=== PATIENT | female | born 1960 | race American Indian/Alaskan Native ===

== ENCOUNTER 2021-05-06 23:16 | Observation (INO) | payer MEDICARE ==
--- NOTE | 2021-05-07 01:37 | Emergency Department Report ---
HPI - General Chief Complaint: Altered Mental Status Time Seen by Provider: 05/07/21 01:18 - HPI HPI: 61-year-old female with unknown past medical history brought in by EMS after she was found lying down in someone's backyard with altered mental status. Patient has a purse with her containing the medications metoprolol and gabapentin. According to EMS her vital signs were normal and fingerstick blood glucose was normal. The patient states that she has no memory of how she ended up in the hospital. She says the last thing she remembers she was walking and then now she knows that she is in [facility]. She however is not oriented to time or situation. She does not member falling or hitting her head. She is confused and therefore it is very difficult to obtain a consistent history from the patient. Review of systems is inconsistent and changes over the course of seconds. Further details the HPI are limited due to the patient's current clinical condition. ED Past Medical Hx - Past Medical History Previous Medical History?: Yes Additional medical history: Unknown - Surgical History Past Surgical History?: No - Medications Home Medications: Home Medications Medication Instructions Recorded Confirmed Last Taken Type Cyclobenzaprine HCl [Flexeril 5 MG 5 mg PO QDAY 05/07/21 05/07/21 05/06/21 History TAB] Gabapentin [Neurontin] 400 mg PO TID PRN 05/07/21 05/07/21 05/05/21 History Metoprolol Xl [Toprol Xl] 100 mg PO BID 05/07/21 05/07/21 05/06/21 History ED Review of Systems ROS: Stated complaint: ALTERED MENTAL STATUS Other details as noted in HPI Comment: Unobtainable due to pts medical conditions Physical Exam - Physical Exam Vital Signs: Vital Signs 05/07/21 00:22 Temperature 98.0 F Pulse Rate 52 L Respiratory 18 Rate Blood Pressure 123/95 [Left] O2 Sat by Pulse 98 Oximetry Physical Exam: GENERAL: Frail appearing and disheveled with grass in the patient's care. HEAD: Normocephalic. No obvious signs of trauma. ENT: Moist mucous membranes. EYES: Extraocular movements are intact. Pupils constricted bilaterally but round and reactive. NECK: Supple. Full ROM is intact. Trachea is midline. LUNGS: Nonlabored breathing. Equal chest rise bilaterally. Decreased breath signs bilaterally but no rales wheezes appreciated CARDIOVASCULAR: Bradycardic but with regular rhythm. No murmurs or rubs. VASCULAR: Cap refill < 2 seconds ABDOMEN: Abdomen is soft and nondistended. There is no significant tenderness, guarding or rebound. SKIN: Skin is warm and dry NEURO: Patient is awake but slightly somnolent. Oriented only to place she has involuntary jerking movements of her bilateral upper extremities. operations team leader II-XII grossly intact. No focal deficits. Normal motor and sensory exam throughout. MUSCULOSKELETAL: No obvious deformities. No significant tenderness. Normal ROM throughout. BACK/SPINE: No midline tenderness or step-offs of the C/T/L spine. No costovertebral angle tenderness. ED Course Vital Signs 05/07/21 00:22 Temperature 98.0 F Pulse Rate 52 L Respiratory 18 Rate Blood Pressure 123/95 [Left] O2 Sat by Pulse 98 Oximetry ED Medical Decision Making - Lab Data Result diagrams: 05/07/21 03:05 05/07/21 01:53 Lab Results 05/07/21 05/07/21 05/07/21 Range/Units 01:53 01:53 01:53 WBC (4.5-11.0) K/mm3 RBC (3.65-5.03) M/mm3 Hgb (10.1-14.3) gm/dl Hct (30.3-42.9) % MCV (79-97) fl MCH (28-32) pg MCHC (30-34) % RDW (13.2-15.2) % Plt Count (140-440) K/mm3 Lymph % (Auto) (13.4-35.0) % [place] % (Auto) (0.0-7.3) % Eos % (Auto) (0.0-4.3) % Baso % (Auto) (0.0-1.8) % Lymph # (Auto) (1.2-5.4) K/mm3 [place] # (Auto) (0.0-0.8) K/mm3 Eos # (Auto) (0.0-0.4) K/mm3 Baso # (Auto) (0.0-0.1) K/mm3 Seg Neutrophils % (40.0-70.0) % Seg Neutrophils # (1.8-7.7) K/mm3 PT 13.5 (12.2-14.9) Sec. INR 0.93 (0.87-1.13) Sodium 138 (137-145) mmol/L Potassium 3.4 L (3.6-5.0) mmol/L Chloride 100.7 (98-107) mmol/L Carbon Dioxide 19 L (22-30) mmol/L Anion Gap 22 mmol/L BUN 14 (7-17) mg/dL Creatinine 0.8 (0.6-1.2) mg/dL Estimated GFR > 60 ml/min BUN/Creatinine Ratio 18 % Glucose 58 L (65-100) mg/dL POC Glucose (70-105) mg/dL Calcium 9.0 (8.4-10.2) mg/dL Magnesium 2.10 (1.7-2.3) mg/dL Total Bilirubin 0.80 (0.1-1.2) mg/dL Direct Bilirubin 0.2 (0-0.2) mg/dL Indirect Bilirubin 0.6 mg/dL AST 30 (5-40) units/L ALT 51 (7-56) units/L Alkaline Phosphatase 115 (35-129) units/L Ammonia (25-60) umol/L Troponin T < 0.010 (0.00-0.029) ng/mL Total Protein 8.8 H (6.3-8.2) g/dL Albumin 4.2 (3.9-5) g/dL Albumin/Globulin Ratio 0.9 % Lipase 12 L (13-60) units/L TSH (0.270-4.200) mlU/mL Salicylates (2.8-20.0) mg/dL Acetaminophen (10.0-30.0) ug/mL Plasma/Serum Alcohol (0-0.07) % Blood Type Antibody Screen 05/07/21 05/07/21 05/07/21 Range/Units 01:53 01:53 01:53 WBC (4.5-11.0) K/mm3 RBC (3.65-5.03) M/mm3 Hgb (10.1-14.3) gm/dl Hct (30.3-42.9) % MCV (79-97) fl MCH (28-32) pg MCHC (30-34) % RDW (13.2-15.2) % Plt Count (140-440) K/mm3 Lymph % (Auto) (13.4-35.0) % [place] % (Auto) (0.0-7.3) % Eos % (Auto) (0.0-4.3) % Baso % (Auto) (0.0-1.8) % Lymph # (Auto) (1.2-5.4) K/mm3 [place] # (Auto) (0.0-0.8) K/mm3 Eos # (Auto) (0.0-0.4) K/mm3 Baso # (Auto) (0.0-0.1) K/mm3 Seg Neutrophils % (40.0-70.0) % Seg Neutrophils # (1.8-7.7) K/mm3 PT (12.2-14.9) Sec. INR (0.87-1.13) Sodium (137-145) mmol/L Potassium (3.6-5.0) mmol/L Chloride (98-107) mmol/L Carbon Dioxide (22-30) mmol/L Anion Gap mmol/L BUN (7-17) mg/dL Creatinine (0.6-1.2) mg/dL Estimated GFR ml/min BUN/Creatinine Ratio % Glucose (65-100) mg/dL POC Glucose (70-105) mg/dL Calcium (8.4-10.2) mg/dL Magnesium (1.7-2.3) mg/dL Total Bilirubin (0.1-1.2) mg/dL Direct Bilirubin (0-0.2) mg/dL Indirect Bilirubin mg/dL AST (5-40) units/L ALT (7-56) units/L Alkaline Phosphatase (35-129) units/L Ammonia 35.0 (25-60) umol/L Troponin T (0.00-0.029) ng/mL Total Protein (6.3-8.2) g/dL Albumin (3.9-5) g/dL Albumin/Globulin Ratio % Lipase (13-60) units/L TSH 0.828 (0.270-4.200) mlU/mL Salicylates < 0.3 L (2.8-20.0) mg/dL Acetaminophen (10.0-30.0) ug/mL Plasma/Serum Alcohol (0-0.07) % Blood Type Antibody Screen 05/07/21 05/07/2121 Range/Units 01:53 01:53 01:53 WBC (4.5-11.0) K/mm3 RBC (3.65-5.03) M/mm3 Hgb (10.1-14.3) gm/dl Hct (30.3-42.9) % MCV (79-97) fl MCH (28-32) pg MCHC (30-34) % RDW (13.2-15.2) % Plt Count (140-440) K/mm3 Lymph % (Auto) (13.4-35.0) % [place] % (Auto) (0.0-7.3) % Eos % (Auto) (0.0-4.3) % Baso % (Auto) (0.0-1.8) % Lymph # (Auto) (1.2-5.4) K/mm3 [place] # (Auto) (0.0-0.8) K/mm3 Eos # (Auto) (0.0-0.4) K/mm3 Baso # (Auto) (0.0-0.1) K/mm3 Seg Neutrophils % (40.0-70.0) % Seg Neutrophils # (1.8-7.7) K/mm3 PT (12.2-14.9) Sec. INR (0.87-1.13) Sodium (137-145) mmol/L Potassium (3.6-5.0) mmol/L Chloride (98-107) mmol/L Carbon Dioxide (22-30) mmol/L Anion Gap mmol/L BUN (7-17) mg/dL Creatinine (0.6-1.2) mg/dL Estimated GFR ml/min BUN/Creatinine Ratio % Glucose (65-100) mg/dL POC Glucose (70-105) mg/dL Calcium (8.4-10.2) mg/dL Magnesium (1.7-2.3) mg/dL Total Bilirubin (0.1-1.2) mg/dL Direct Bilirubin (0-0.2) mg/dL Indirect Bilirubin mg/dL AST (5-40) units/L ALT (7-56) units/L Alkaline Phosphatase (35-129) units/L Ammonia (25-60) umol/L Troponin T (0.00-0.029) ng/mL Total Protein (6.3-8.2) g/dL Albumin (3.9-5) g/dL Albumin/Globulin Ratio % Lipase (13-60) units/L TSH (0.270-4.200) mlU/mL Salicylates (2.8-20.0) mg/dL Acetaminophen 5.0 L (10.0-30.0) ug/mL Plasma/Serum Alcohol < 0.01 (0-0.07) % Blood Type O POSITIVE Antibody Screen Negative 05/07/21 05/07/21 05/07/21 Range/Units 03:05 03:58 06:04 WBC 8.6 (4.5-11.0) K/mm3 RBC 4.99 (3.65-5.03) M/mm3 Hgb 14.8 H (10.1-14.3) gm/dl Hct 46.6 H (30.3-42.9) % MCV 93 (79-97) fl MCH 30 (28-32) pg MCHC 32 (30-34) % RDW 13.2 (13.2-15.2) % Plt Count 233 (140-440) K/mm3 Lymph % (Auto) 30.5 (13.4-35.0) % [place] % (Auto) 5.4 (0.0-7.3) % Eos % (Auto) 0.7 (0.0-4.3) % Baso % (Auto) 0.8 (0.0-1.8) % Lymph # (Auto) 2.6 (1.2-5.4) K/mm3 [place] # (Auto) 0.5 (0.0-0.8) K/mm3 Eos # (Auto) 0.1 (0.0-0.4) K/mm3 Baso # (Auto) 0.1 (0.0-0.1) K/mm3 Seg Neutrophils % 62.6 (40.0-70.0) % Seg Neutrophils # 5.4 (1.8-7.7) K/mm3 PT (12.2-14.9) Sec. INR (0.87-1.13) Sodium (137-145) mmol/L Potassium (3.6-5.0) mmol/L Chloride (98-107) mmol/L Carbon Dioxide (22-30) mmol/L Anion Gap mmol/L BUN (7-17) mg/dL Creatinine (0.6-1.2) mg/dL Estimated GFR ml/min BUN/Creatinine Ratio % Glucose (65-100) mg/dL POC Glucose 106 H (70-105) mg/dL Calcium (8.4-10.2) mg/dL Magnesium (1.7-2.3) mg/dL Total Bilirubin (0.1-1.2) mg/dL Direct Bilirubin (0-0.2) mg/dL Indirect Bilirubin mg/dL AST (5-40) units/L ALT (7-56) units/L Alkaline Phosphatase (35-129) units/L Ammonia (25-60) umol/L Troponin T < 0.010 (0.00-0.029) ng/mL Total Protein (6.3-8.2) g/dL Albumin (3.9-5) g/dL Albumin/Globulin Ratio % Lipase (13-60) units/L TSH (0.270-4.200) mlU/mL Salicylates (2.8-20.0) mg/dL Acetaminophen (10.0-30.0) ug/mL Plasma/Serum Alcohol (0-0.07) % Blood Type Antibody Screen - EKG Data -: EKG Interpreted by Ar - EKG Data 05/07/21 18:30 Sinus bradycardia with heart rate of 45. Normal axis. Normal intervals. Occasional PVCs. No significant ST segment or T wave abnormalities. - Medical Decision Making 61-year-old female with unknown past medical history brought in after she was found lying in another person's backyard with altered mental status. The patient does not remember how she ended up at our hospital but does not know that she is at [facility]. She states that the last thing she remembers she was walking down the street and then she woke up in our emergency department. She is not oriented to time or situation. She is afebrile and with normal vital signs with the exception of bradycardia in the low 50s but with normal blood pressure. On physical exam she appears very disheveled with grass in her hair. However there are no obvious signs of trauma. She is noted to have involuntary jerking movements of her bilateral upper extremities. Otherwise she has a nonfocal neurologic exam. Lung auscult ation reveals decreased breath sounds but without any crackles or wheezes. We will perform broad work-up with full set of labs, chest x-ray, EKG, and CT of the head. We will continue to monitor her heart rate very closely. Chest x-ray reveals no acute abnormalities. EKG reveals only sinus bradycardia in the 40s. Labs reveal no significant leukocytosis or anemia. She has mild hypokalemia with potassium of 3.4, which we will replete. Kidney function is within normal limits. Initial troponin is negative. However, patient is noted to have glucose of 58. Patient was asking for food at the time that labs resulted and patient was given food with appropriate increase in her blood glucose. In addition her heart rate increased slightly to the 60s after eating. UDS is positive for cocaine. Urinalysis reveals findings consistent with urinary tract infection. I have ordered blood cultures and [address] of the head reveals no acute abnormalities. At 5:44 AM I spoke with Dr. Conteh of cardiology regarding the patient's case. He agrees with observation at this time and says he will see the patient in place further inpatient recommendations. Given the patient's altered mental status, unknown baseline, unknown past medical history, and her hypoglycemia, bradycardia, and urinary tract infection, she will require admission to the hospital for further work-up and management. Just before 6 AM I spoke with Dr. Elaine, the on-call hospitalist regarding the case. He accepts patient for admission and will assume care. Critical Care Time: Yes Critical care time in (mins) excluding proc time.: 40 Critical care attestation.: If time is entered above; I have spent that time in minutes in the direct care of this critically ill patient, excluding procedure time. Critical care time was spent in the evaluation/assessment, work-up, and management of altered mental status with bradycardia and hypoglycemia requiring close glucose monitoring and administration, electrolyte repletion, cardiology consultation and discussion, IV antibiotics, as well as multiple reevaluations and reassessments. ED Disposition Clinical Impression: Altered mental state, Acute metabolic encephalopathy, UTI (urinary tract infection), Hypoglycemia, Bradycardia, Involuntary movements Disposition: ADMITTED INPATIENT Is pt being admited?: Yes Condition: Undetermined
--- NOTE | 2021-05-07 02:02 | XRay Report ---
CHEST 1 VIEW 05/07/2021 12:52 AM INDICATION / CLINICAL INFORMATION: AMS. COMPARISON: None available. FINDINGS: SUPPORT DEVICES: None. HEART / MEDIASTINUM: The heart size and pulmonary vasculature are normal. There is mild aortic tortuo sity without aneurysm. LUNGS / PLEURA: No significant pulmonary or pleural abnormality. No pneumothorax. ADDITIONAL FINDINGS: No significant additional findings. IMPRESSION: No acute findings. Signer Name: Mukesh Steinberg MD Signed: 05/07/2021 1:58 AM Workstation Name: [id number]
[2021-05-07 02:29] LABS: INR 0.93 (0.87-1.13)
[2021-05-07 02:42] LABS: Alanine Aminotransferase 51 units/L (7-56); Albumin 4.2 g/dL (3.9-5); BUN/Creatinine Ratio 18; Bilirubin,Direct 0.2 mg/dL (0-0.2); Blood Urea Nitrogen 14 mg/dL (7-17); Hemolysis Index 14
[2021-05-07] MEDS ORDERED: POTASSIUM CHLORIDE ER 20 MEQ TAB PO ONE (02:47)
[2021-05-07 03:00] LABS: Bacteria,Urine 1+ /HPF (Negative); Bilirubin,Urine NEG (Negative); Blood,Urine SM (Negative); Color,Urine Yellow (Yellow); Mucus,Urine FEW /HPF; Protein,Urine <15 mg/dL mg/dL (Negative)
[2021-05-07 03:07] LABS: Amphetamine Screen,Urine PRESUMPTIVE NEGATIVE; Benzodiazepines Screen,Urine PRESUMPTIVE NEGATIVE; Cannabinoid Screen,Urine PRESUMPTIVE NEGATIVE; Cocaine Screen,Urine PRESUMPTIVE POSITIVE; Methadone Screen,Urine PRESUMPTIVE NEGATIVE; Opiate Screen,Urine PRESUMPTIVE NEGATIVE
[2021-05-07 03:21] LABS: Basophils # (Auto) 0.1 K/mm3 (0.0-0.1); Basophils % (Auto) 0.8 % (0.0-1.8); Eosinophils # (Auto) 0.1 K/mm3 (0.0-0.4); Eosinophils % (Auto) 0.7 % (0.0-4.3); Hematocrit 46.6 % (30.3-42.9); Hemoglobin 14.8 gm/dl (10.1-14.3); Lymphocytes # (Auto) 2.6 K/mm3 (1.2-5.4); Lymphocytes % (Auto) 30.5 % (13.4-35.0); Mean Corpuscular HGB Conc 32 % (30-34); Mean Corpuscular Volume 93 fl (79-97); Monocytes # (Auto) 0.5 K/mm3 (0.0-0.8); Monocytes % (Auto) 5.4 % (0.0-7.3); Platelet Count 233 K/mm3 (140-440); Red Blood Count 4.99 M/mm3 (3.65-5.03); Red Cell Distribution Width 13.2 % (13.2-15.2)
[2021-05-07] MEDS ORDERED: cefTRIAXone/NS 1 GM/50 ML 1 GM/50 ML BAG IV ONE (04:41)
[2021-05-07] MEDS ORDERED: SODIUM CHLORIDE 0.9% 500 ML 500 ML IV ONE (04:42)
--- NOTE | 2021-05-07 04:57 | Cat Scan Report ---
CT HEAD WITHOUT CONTRAST INDICATION / CLINICAL INFORMATION: Patient was found down. Altered mental status. TECHNIQUE: All CT scans at this location are performed using CT dose reduction for ALARA by means of automated exposure control. COMPARISON: None available. FINDINGS: HEMORRHAGE: None. EXTRA-AXIAL SPACES: Mildly prominent likely related to cortical atrophy. VENTRICULAR SYSTEM: Mildly enlarged likely related to central atrophy. CEREBRAL PARENCHYMA: There are extensive small vessel ischemic changes in the white matter and gangli ocapsular regions bilaterally. There is mild bilateral basal ganglia calcification. No acute territor ial infarct. MIDLINE SHIFT / HERNIATION: None. CEREBELLUM / BRAINSTEM: No significant abnormality. ORBITS: Normal as visualized. SOFT TISSUES: No significant abnormality. SKULL: No significant abnormality. PARANASAL SINUSES / MASTOID AIR CELLS: Normal as visualized. ADDITIONAL FINDINGS: None. IMPRESSION: No acute intracranial abnormality. Signer Name: Mukesh Steinberg MD Signed: 05/07/2021 4:52 AM Workstation Name: [id number]
[2021-05-07] MEDS ORDERED: ONDANSETRON 4 MG/2 ML INJ IV PRN (06:12)
[2021-05-07] MEDS ORDERED: MORPHINE 2 MG/1 ML INJ IV PRN (06:12)
[2021-05-07] MEDS ORDERED: ALBUTEROL 2.5 MG/3 ML NEBU IH PRN (06:12)
[2021-05-07] MEDS ORDERED: HYDROmorphone 1 MG/1 ML INJ IV PRN (06:12)
[2021-05-07] MEDS ORDERED: ACETAMINOPHEN 325 MG TAB PO PRN (06:12)
--- NOTE | 2021-05-07 06:21 | History and Physical Report ---
History of Present Illness Date of examination: 05/07/21 Date of admission: 05/07/21 Chief complaint: Altered mental status History of present illness: 61 years old female with past medical history of hypertension was brought to the emergency room because of altered mental status. Patient was found by EMS somebody's backyard. Patient was covered with dirt. Patient was lethargic. We do not get a clear history. Subsequently patient was brought to the emergency room . In the emergency room patient pulse rate was 52 and blood glucose 58 ,subsequently patient was given blood glucose after that patient is little bit more awake alert. Initial CT scan shows no acute intracranial abnormality. But patient is found to have a UTI and patient urine drug is skin is positive for cocaine Patient is a poor historian and lethargic. Most of the history is obtained from the chart and talking to the ER physician Past History Past Medical History: hypertension Medications and Allergies Allergies Allergy/AdvReac Type Severity Reaction Status Date / Time No Known Allergies Allergy Unverified 05/06/21 23:24 Review of Systems All systems: negative Constitutional: lethargy Neurological: change in mentation Exam - Constitutional Vitals: Temp Pulse Resp BP Pulse Ox 98.0 F 60 12 136/68 98 05/07/21 00:22 05/07/21 05:00 05/07/21 05:00 05/07/21 05:00 05/07/21 05:00 General appearance: Present: mild distress, well-nourished - EENT Eyes: Present: PERRL ENT: hearing intact, clear oral mucosa - Neck Neck: Present: supple, normal ROM - Respiratory Respiratory effort: normal Respiratory: bilateral: CTA - Cardiovascular Heart Sounds: Present: S1 & S2. Absent: rub, click - Extremities Extremities: pulses symmetrical, No edema Peripheral Pulses: within normal limits - Abdominal General gastrointestinal: Present: soft, non-tender, non-distended, normal bowel sounds Female genitourinary: Present: normal - Integumentary Integumentary: Present: clear, warm, dry - Musculoskeletal Musculoskeletal: gait normal, strength equal bilaterally - Psychiatric Psychiatric: other (Patient is lethargic altered mental status) - Neurologic Neurologic: CNII-XII intact, moves all extremities, other (Patient is lethargic, altered mental status) HEART Score - HEART Score Troponin: Troponin T < 0.010 ng/mL (0.00-0.029) 05/07/21 01:53 Results - Labs CBC & Chem 7: 05/07/21 03:05 05/07/21 01:53 Labs: Laboratory Last Values WBC 8.6 K/mm3 (4.5-11.0) 05/07/21 03:05 RBC 4.99 M/mm3 (3.65-5.03) 05/07/21 03:05 Hgb 14.8 gm/dl (10.1-14.3) H 05/07/21 03:05 Hct 46.6 % (30.3-42.9) H 05/07/21 03:05 MCV 93 fl (79-97) 05/07/21 03:05 MCH 30 pg (28-32) 05/07/21 03:05 MCHC 32 % (30-34) 05/07/21 03:05 RDW 13.2 % (13.2-15.2) 05/07/21 03:05 Plt Count 233 K/mm3 (140-440) 05/07/21 03:05 Lymph % (Auto) 30.5 % (13.4-35.0) 05/07/21 03:05 [place] % (Auto) 5.4 % (0.0-7.3) 05/07/21 03:05 Eos % (Auto) 0.7 % (0.0-4.3) 05/07/21 03:05 Baso % (Auto) 0.8 % (0.0-1.8) 05/07/21 03:05 Lymph # (Auto) 2.6 K/mm3 (1.2-5.4) 05/07/21 03:05 [place] # (Auto) 0.5 K/mm3 (0.0-0.8) 05/07/21 03:05 Eos # (Auto) 0.1 K/mm3 (0.0-0.4) 05/07/21 03:05 Baso # (Auto) 0.1 K/mm3 (0.0-0.1) 05/07/21 03:05 Seg Neutrophils % 62.6 % (40.0-70.0) 05/07/21 03:05 Seg Neutrophils # 5.4 K/mm3 (1.8-7.7) 05/07/21 03:05 PT 13.5 Sec. (12.2-14.9) 05/07/21 01:53 INR 0.93 (0.87-1.13) 05/07/21 01:53 Sodium 138 mmol/L (137-145) 05/07/21 01:53 Potassium 3.4 mmol/L (3.6-5.0) L 05/07/21 01:53 Chloride 100.7 mmol/L (98-107) 05/07/21 01:53 Carbon Dioxide 19 mmol/L (22-30) L 05/07/21 01:53 Anion Gap 22 mmol/L 05/07/21 01:53 BUN 14 mg/dL (7-17) 05/07/21 01:53 Creatinine 0.8 mg/dL (0.6-1.2) 05/07/21 01:53 Estimated GFR > 60 ml/min 05/07/21 01:53 BUN/Creatinine Ratio 18 % 05/07/21 01:53 Glucose 58 mg/dL (65-100) L 05/07/21 01:53 POC Glucose 106 mg/dL (70-105) H 05/07/21 03:58 Calcium 9.0 mg/dL (8.4-10.2) 05/07/21 01:53 Magnesium 2.10 mg/dL (1.7-2.3) 05/07/21 01:53 Total Bilirubin 0.80 mg/dL (0.1-1.2) 05/07/21 01:53 Direct Bilirubin 0.2 mg/dL (0-0.2) 05/07/21 01:53 Indirect Bilirubin 0.6 mg/dL 05/07/21 01:53 AST 30 units/L (5-40) 05/07/21 01:53 ALT 51 units/L (7-56) 05/07/21 01:53 Alkaline Phosphatase 115 units/L (35-129) 05/07/21 01:53 Ammonia 35.0 umol/L (25-60) 05/07/21 01:53 Troponin T < 0.010 ng/mL (0.00-0.029) 05/07/21 01:53 Total Protein 8.8 g/dL (6.3-8.2) H 05/07/21 01:53 Albumin 4.2 g/dL (3.9-5) 05/07/21 01:53 Albumin/Globulin Ratio 0.9 % 05/07/21 01:53 Lipase 12 units/L (13-60) L 05/07/21 01:53 TSH 0.828 mlU/mL (0.270-4.200) 05/07/21 01:53 Urine Color Yellow (Yellow) 05/07/21 Unknown Urine Turbidity Slightly-cloudy (Clear) 05/07/21 Unknown Urine pH 6.0 (5.0-7.0) 05/07/21 Unknown Ur Specific [place] 1.017 (1.003-1.030) 05/07/21 Unknown Urine Protein <15 mg/dl mg/dL (Negative) 05/07/21 Unknown Urine Glucose (UA) Neg mg/dL (Negative) 05/07/21 Unknown Urine Ketones 20 mg/dL (Negative) 05/07/21 Unknown Urine Blood Sm (Negative) 05/07/21 Unknown Urine Nitrite Neg (Negative) 05/07/21 Unknown Urine Bilirubin Neg (Negative) 05/07/21 Unknown Urine Urobilinogen 4.0 mg/dL (<2.0) 05/07/21 Unknown Ur Leukocyte Esterase Neg (Negative) 05/07/21 Unknown Urine WBC (Auto) 7.0 /HPF (0.0-6.0) H 05/07/21 Unknown Urine RBC (Auto) 20.0 /HPF (0.0-6.0) 05/07/21 Unknown U Epithel Cells (Auto) 4.0 /HPF (0-13.0) 05/07/21 Unknown Urine Bacteria (Auto) 1+ /HPF (Negative) 05/07/21 Unknown Urine Mucus Few /HPF 05/07/21 Unknown Urine Yeast (Budding) 1+ /HPF 05/07/21 Unknown Salicylates < 0.3 mg/dL (2.8-20.0) L 05/07/21 01:53 Urine Opiates Screen Presumptive negative 05/07/21 Unknown Urine Methadone Screen Presumptive negative 05/07/21 Unknown Acetaminophen 5.0 ug/mL (10.0-30.0) L 05/07/21 01:53 Ur Barbiturates Screen Presumptive negative 05/07/21 Unknown Ur Phencyclidine Scrn Presumptive negative 05/07/21 Unknown Ur Amphetamines Screen Presumptive negative 05/07/21 Unknown U Benzodiazepines Scrn Presumptive negative 05/07/21 Unknown Urine Cocaine Screen Presumptive positive 05/07/21 Unknown U Marijuana (THC) Screen Presumptive negative 05/07/21 Unknown Drugs of Abuse Note Disclamer 05/07/21 Unknown Plasma/Serum Alcohol < 0.01 % (0-0.07) 05/07/21 01:53 Blood Type O POSITIVE 05/07/21 01:53 Antibody Screen Negative 05/07/21 01:53 - Imaging and Cardiology Chest x-ray: report reviewed CT Scan - head: report reviewed Assessment and Plan VTE prophylaxis?: Chemical Plan of care discussed with patient/family: Yes - Patient Problems (1) Acute metabolic encephalopathy Current Visit: Yes Status: Acute Plan to address problem: Admit the patient to the medical telemetry. Metabolic encephalitis multifactorial secondary to UTI cocaine abuse and hypoglycemia. NPO. D5 half- normal saline at the rate of 100 cc/h. Oxygen via nasal catheter per minute. DuoNeb by nebulizer every 4 hours as needed. Rocephin 2 g IV daily. We will monitor the patient closely (2) UTI (urinary tract infection) Current Visit: Yes Status: Acute Plan to address problem: Rocephin 2 g IV daily. We will send the urine for culture. We will continue the home medication (3) Hypertension Current Visit: Yes Status: Acute Plan to address problem: Hydralazine 10 mg IV every 6 hours as needed. We will monitor the blood pressure closely (4) Bradycardia Current Visit: Yes Status: Acute Plan to address problem: Patient is bradycardic heart rate is 52. Will hold him metoprolol. We order echocardiogram and consult cardiology for evaluation (5) Hypoglycemia Current Visit: Yes Status: Acute Plan to address problem: . D5 half-normal saline at the rate of 100 cc/h. We will monitor the blood glucose closely recheck BMP in the morning (6) DVT prophylaxis Current Visit: Yes Status: Acute Plan to address problem: Heparin 5000 units subcu every 8 hours for DVT prophylaxis. Pepcid 20 mg IV every 12 hours for GI prophylaxis. Patient is a full code
[2021-05-07] MEDS ORDERED: D5W/0.45% NACL 1,000 ML IV SCH (07:00)
[2021-05-07] MEDS: cefTRIAXone/NS 2 GM/100 ML 2 GM/100 ML BAG IV SCH (07:35)
[2021-05-07] MEDS: FAMOTIDINE 20 MG/2 ML INJ IV SCH ×2 (09:56→21:33)
[2021-05-07] MEDS: IPRATROPIUM/ALBUTEROL SULFATE 3 ML AMPUL.NEB IH SCH ×3 (11:20→21:04)
--- NOTE | 2021-05-07 12:35 | Consultation ---
History of Present Illness Consult date: 05/07/21 Requesting physician: ANDREAS SOLARES Consult reason: bradycardia History of present illness: Patient is a 61 y/o female with an unknown PMHX who was brought to [facility] via EMS after being found lying in someones backyard. History taken from documentation because patient states she does not remember anything and still appears to be slightly confused. She states that all she remembers was going for a walk. Per documentation patient was found with metoprolol and gabapentin in their bag. OF note patient UDS was positive for cocaine. Patient EKG showed sinus bradycardia rate 45. Patient denies any complaints including chest pain, palpitations, SOB, MORRIS, or lightheadedness. Patient is previously unknown to our practice. Cardiology is consulted for bradycardia. Past History Past Medical History: hypertension Past Surgical History: No surgical history Social history: smoking, alcohol abuse, other Family history: no significant family history Medications and Allergies Allergies Allergy/AdvReac Type Severity Reaction Status Date / Time No Known Allergies Allergy Verified 05/07/21 09:30 Home Medications Medication Instructions Recorded Confirmed Last Taken Type Cyclobenzaprine HCl [Flexeril 5 MG 5 mg PO QDAY 05/07/21 05/07/21 05/06/21 History TAB] Gabapentin [Neurontin] 400 mg PO TID PRN 05/07/21 05/07/21 05/05/21 History Metoprolol Xl [Toprol Xl] 100 mg PO BID 05/07/21 05/07/21 05/06/21 History Active Meds: Active Medications Acetaminophen (Acetaminophen 325 Mg Tab) 650 mg PO Q4H PRN PRN Reason: Pain MILD(1-3)/Fever >100.5/HURT Albuterol (Albuterol 2.5 Mg/3 Ml Nebu) 2.5 mg IH Q4HRT PRN PRN Reason: Shortness Of Breath Albuterol/Ipratropium (Ipratropium/Albuterol Sulfate 3 Ml Ampul.Neb) 1 ampul IH Q6HRT [facility] Last Admin: 05/07/21 11:20 Dose: Not Given Documented by: Famotidine (Famotidine 20 Mg/2 Ml Inj) 20 mg IV BID [facility] Last Admin: 05/07/21 09:56 Dose: 20 mg Documented by: Heparin Sodium (Porcine) (Heparin 5,000 Unit/1 Ml Vial) 5,000 unit SUB-Q Q8HR LUZMARIA Hydromorphone HCl (Hydromorphone 1 Mg/1 Ml Inj) 0.5 mg IV Q3H PRN PRN Reason: Pain , Severe (7-10) Dextrose/Sodium Chloride (D5/0.45ns) 1,000 mls @ 100 mls/hr IV DIRECT LUZMARIA Ceftriaxone Sodium (Rocephin/Ns 2 Gm/100 Ml) 2 gm in 100 mls @ 200 mls/hr IV Q24HR LUZMARIA; Protocol Last Admin: 05/07/21 07:35 Dose: 200 mls/hr Documented by: Morphine Sulfate (Morphine 2 Mg/1 Ml Inj) 2 mg IV Q4H PRN PRN Reason: Pain, Moderate (4-6) Ondansetron HCl (Ondansetron 4 Mg/2 Ml Inj) 4 mg IV Q8H PRN PRN Reason: Nausea And Vomiting Sodium Chloride (Sodium Chloride 0.9% 10 Ml Flush Syringe) 10 ml IV BID [facility] Last Admin: 05/07/21 09:56 Dose: 10 ml Documented by: Sodium Chloride (Sodium Chloride 0.9% 10 Ml Flush Syringe) 10 ml IV PRN PRN PRN Reason: LINE FLUSH Review of Systems Constitutional: no weight loss, no weight gain Ears, nose, mouth and throat: no nose pain, no nasal discharge, no sinus pressure Cardiovascular: no chest pain, no orthopnea, no palpitations, no syncope, no lightheadedness, no shortness of breath Respiratory: no shortness of breath, no dyspnea on exertion Gastrointestinal: no abdominal pain, no nausea, no vomiting Musculoskeletal: no neck stiffness, no neck pain, no shooting arm pain Integumentary: no rash, no pruritis, no redness Neurological: no head injury, no transient paralysis, no paralysis Psychiatric: memory loss, no anxiety Endocrine: no cold intolerance, no heat intolerance Hematologic/Lymphatic: no easy bruising, no easy bleeding Physical Examination Vital Signs Temp Pulse Resp BP Pulse Ox 98.0 F 52 L 18 123/95 98 05/07/21 00:22 05/07/21 00:22 05/07/21 00:22 05/07/21 00:22 05/07/21 00:22 General appearance: no acute distress HEENT: Positive: PERRL Neck: Positive: neck supple Cardiac: Positive: Reg Rate and Rhythm Lungs: Positive: Normal Breath Sounds Neuro: Positive: Grossly Intact Abdomen: Positive: Soft Skin: Negative: Rash, Suspicious Lesions, Ulceration Extremities: Absent: edema Results 05/07/21 03:05 05/07/21 01:53 Cardiac Enzymes 05/07/21 Range/Units 01:53 AST 30 (5-40) units/L Coagulation 05/07/21 Range/Units 01:53 PT 13.5 (12.2-14.9) Sec. INR 0.93 (0.87-1.13) CBC 05/07/21 Range/Units 03:05 WBC 8.6 (4.5-11.0) K/mm3 RBC 4.99 (3.65-5.03) M/mm3 Hgb 14.8 H (10.1-14.3) gm/dl Hct 46.6 H (30.3-42.9) % Plt Count 233 (140-440) K/mm3 Lymph # (Auto) 2.6 (1.2-5.4) K/mm3 Armstrong # (Auto) 0.5 (0.0-0.8) K/mm3 Eos # (Auto) 0.1 (0.0-0.4) K/mm3 Baso # (Auto) 0.1 (0.0-0.1) K/mm3 Comprehensive Metabolic Panel 05/07/21 Range/Units 01:53 Sodium 138 (137-145) mmol/L Potassium 3.4 L (3.6-5.0) mmol/L Chloride 100.7 (98-107) mmol/L Carbon Dioxide 19 L (22-30) mmol/L BUN 14 (7-17) mg/dL Creatinine 0.8 (0.6-1.2) mg/dL Glucose 58 L (65-100) mg/dL Calcium 9.0 (8.4-10.2) mg/dL Direct Bilirubin 0.2 (0-0.2) mg/dL Indirect Bilirubin 0.6 mg/dL AST 30 (5-40) units/L ALT 51 (7-56) units/L Alkaline Phosphatase 115 (35-129) units/L Total Protein 8.8 H (6.3-8.2) g/dL Albumin 4.2 (3.9-5) g/dL - Imaging and Cardiology Echo: pending EKG interpretations - Telemetry EKG Rhythm: Sinus Bradycardia - EKG Sinus rhythms and dysrhythmias: sinus bradycardia Assessment and Plan Patient is a 61 y/o female with an unknown PMHX who was brought to [facility] via EMS after being found lying in someones backyard AMS Sinus bradycardia Cocaine use HTN Hypoglycemia Plan: EKG shows sinus bradycardia rate 45 no acute ischemic changes. Troponins negative x2. Patient denies any chest pain. AMI ruled out Patient denies any symptoms related to bradycardia and patient currently trend ing sinus 60 to 70s on monitor. Echo pending No beta-blockers due to cocaine use Patient seen in conjunction with Dr. Hitchcock who agrees with this plan of care - Patient Problems (1) Altered mental state Current Visit: Yes Status: Acute (2) Bradycardia Current Visit: Yes Status: Acute (3) Hypertension Current Visit: Yes Status: Acute (4) Hypoglycemia Current Visit: Yes Status: Acute
[2021-05-07] MEDS: HEPARIN 5,000 UNIT/1 ML VIAL SUB-Q SCH ×2 (13:11→21:34)
--- NOTE | 2021-05-07 14:05 | Event Note ---
Date: 05/07/21 The patient was seen and evaluated this morning, and she was found to be hemodynamically stable. The patient is undergoing further work-up to assess for possible acute metabolic encephalopathy.
[2021-05-08] MEDS: IPRATROPIUM/ALBUTEROL SULFATE 3 ML AMPUL.NEB IH SCH ×4 (03:33→20:44)
[2021-05-08] MEDS: HEPARIN 5,000 UNIT/1 ML VIAL SUB-Q SCH ×3 (05:30→21:40)
[2021-05-08 06:05] LABS: Hematocrit 38.2 % (30.3-42.9); Hemoglobin 12.2 gm/dl (10.1-14.3); Mean Corpuscular HGB Conc 32 % (30-34); Mean Corpuscular Volume 93 fl (79-97); Platelet Count 181 K/mm3 (140-440); Red Blood Count 4.11 M/mm3 (3.65-5.03); Red Cell Distribution Width 13.5 % (13.2-15.2)
[2021-05-08 06:26] LABS: Alanine Aminotransferase 28 units/L (7-56); Albumin 3.4 g/dL (3.9-5); BUN/Creatinine Ratio 12; Blood Urea Nitrogen 11 mg/dL (7-17); Calcium 8.2 mg/dL (8.4-10.2); Hemolysis Index 2
[2021-05-08 07:16] LABS: Total Cells Counted 100
[2021-05-08 07:17] LABS: Myelocytes # (Manual) 0.1 K/mm3; Platelet Estimate Consistent w Auto
[2021-05-08] MEDS: cefTRIAXone/NS 2 GM/100 ML 2 GM/100 ML BAG IV SCH (12:03)
[2021-05-08] MEDS: CALCIUM CARBONATE 1250 MG TAB PO SCH (12:04)
[2021-05-08] MEDS: FAMOTIDINE 20 MG/2 ML INJ IV SCH ×2 (12:05→21:39)
--- NOTE | 2021-05-08 12:10 | Electrocardiograph Report ---
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
--- NOTE | 2021-05-08 13:21 | Progress Note ---
Assessment and Plan 61-year-old female with unknown medical history was brought to [facility] due to altered mental status. Patient was found to be hypoglycemic and lethargic. LOC improved after D50 administration. Cardiology was consulted for sinus bradycardia. Sinus bradycardia * Patient is currently asymptomatic and chest pain-free. Twelve-lead shows sinus bradycardia heart rate 45 with no acute ischemic changes. Troponins are negative x2. AMI is ruled out. * Echocardiogram 05/07/2021: LVEF 55 to 60%. LV SF normal. RV SF normal. Mild AR. Trace MR. Mild TR. * Continue to monitor on telemetry patient is currently in sinus rhythm heart rate 70 with no events * Avoid AV chari blocking agents History of hypertension in setting of cocaine positive tox screen * Patient is currently normotensive. Beta-blockers contraindicated due to cocaine use. Management per primary team AMS secondary to hypoglycemia * Management per primary team Patient is stable cardiac status. Will follow on as-needed basis Patient seen in conjunction with Dr. Hitchcock who agrees with this plan of care - Patient Problems (1) Altered mental state Current Visit: Yes Status: Acute (2) Bradycardia Current Visit: Yes Status: Acute (3) Hypertension Current Visit: Yes Status: Acute (4) Hypoglycemia Current Visit: Yes Status: Acute Subjective Date of service: 05/08/21 Principal diagnosis: AMS Interval history: Patient resting comfortably in bed no shortness breath or chest pain overnight Telemetry reviewed: Sinus rhythm 70, low hr SB40 overnight Objective Last Vital Signs Temp 98.1 F 05/08/21 08:50 Pulse 72 05/08/21 09:35 Resp 18 05/08/21 09:35 BP 131/80 05/08/21 08:50 Pulse Ox 100 05/08/21 08:50 - Physical Examination General: Appears Well, No Apparent Distress HEENT: Positive: PERRL Neck: Positive: neck supple Cardiac: Positive: Reg Rate and Rhythm Lungs: Positive: Normal Exam, Normal Breath Sounds Neuro: Positive: Grossly Intact Abdomen: Positive: Soft Skin: Negative: Rash, Suspicious Lesions, Ulceration Extremities: Absent: edema - Labs and Meds Cardiac Enzymes 05/08/21 Range/Units 05:16 AST 13 (5-40) units/L CBC 05/08/21 Range/Units 05:16 WBC 4.3 L (4.5-11.0) K/mm3 RBC 4.11 (3.65-5.03) M/mm3 Hgb 12.2 (10.1-14.3) gm/dl Hct 38.2 D (30.3-42.9) % Plt Count 181 (140-440) K/mm3 Comprehensive Metabolic Panel 05/08/21 Range/Units 05:16 Sodium 140 (137-145) mmol/L Potassium 3.6 (3.6-5.0) mmol/L Chloride 108.4 H (98-107) mmol/L Carbon Dioxide 21 L (22-30) mmol/L BUN 11 (7-17) mg/dL Creatinine 0.9 (0.6-1.2) mg/dL Glucose 111 H (65-100) mg/dL Calcium 8.2 L (8.4-10.2) mg/dL AST 13 (5-40) units/L ALT 28 (7-56) units/L Alkaline Phosphatase 82 (35-129) units/L Total Protein 5.8 L D (6.3-8.2) g/dL Albumin 3.4 L (3.9-5) g/dL - Imaging and Cardiology Echo: report reviewed (Echocardiogram 05/07/2021: LVEF 55 to 60%. LV SF normal. RV SF normal. Mild AR. Trace MR. Mild TR.) - Telemetry EKG Rhythm: Sinus Rhythm - EKG Sinus rhythms and dysrhythmias: sinus bradycardia
--- NOTE | 2021-05-08 16:09 | Progress Note ---
Assessment and Plan Assessment and plan: Patient is a 61-year-old female past medical history of hypertension, polysubstance abuse, and homelessness who was found unresponsive on the ground outside, and EMS was called. Patient was admitted for management of acute metabolic encephalopathy. #Acute metabolic encephalopathy-resolved #Acute toxic encephalopathy-resolved #UTI #Bradycardia #Hypoglycemia-resolved -Etiologies include UTI versus sepsis, hypoglycemia, cocaine abuse, bradycardia/arrhythmia -Continue telemetry. -Urinalysis consistent with UTI. Continue IV antibioticsRocephin 2 g every 24 hours (received 2 doses) -Blood cultures NGTD x24 hours. If no growth after 48 hours, discontinue antibiotics. -Cardiology consulted; appreciate recs. Holding beta-blockade in the setting of cocaine. -Continue to monitor blood glucose. Administered dextrose D50 if patient becomes hypoglycemic. -Continue to monitor #Hypertension -Holding antihypertensives as patient is normotensive. Continue to monitor. #Homelessness #Polysubstance abuse -UDS positive for cocaine. Patient endorses utilizing crack within the last 4-5 days. Patient admits to having a substance abuse disorder. -Patient currently homeless as a result of substance abuse. Patient amendable to being discharged to a group home. Case management made aware and working on discharge planning. #Advanced care planning -Disease education conducted, care plan discussed, diagnoses discussed, prognosis discussed, and patient acknowledges understanding with care plan -Time: +30 minutes #Discharge planning -If blood cultures are negative for 48 hours, patient cleared for discharge. Disposition Plan: Pending discharge to group home tomorrow Total Time Spent with Patient (Minutes): 45 minutes History Interval history: No acute events overnight. Hospitalist Physical - Constitutional Vitals: Temp Pulse Resp BP Pulse Ox 98.1 F 72 18 131/80 98 05/08/21 08:50 05/08/21 09:35 05/08/21 14:00 05/08/21 08:50 05/08/21 14:00 General appearance: Present: no acute distress, well-nourished - EENT Eyes: Present: PERRL, EOM intact ENT: hearing intact, clear oral mucosa, dentition normal - Neck Neck: Present: supple, normal ROM - Respiratory Respiratory effort: normal Respiratory: bilateral: CTA - Cardiovascular Rhythm: regular Heart Sounds: Present: S1 & S2 - Extremities Extremities: no ischemia, pulses intact, pulses symmetrical, No edema, normal temperature, normal color, Full ROM Peripheral Pulses: within normal limits - Abdominal General gastrointestinal: soft, non-tender, non-distended, normal bowel sounds - Integumentary Integumentary: Present: clear, warm, dry - Psychiatric Psychiatric: appropriate mood/affect, cooperative - Neurologic Neurologic: CNII-XII intact, moves all extremities - Allied Health Allied health notes reviewed: nursing HEART Score - HEART Score Troponin: Troponin T < 0.010 ng/mL (0.00-0.029) 05/07/21 06:04 Results - Labs CBC & Chem 7: 05/08/21 05:16 05/08/21 05:16 Labs: Laboratory Last Values WBC 4.3 K/mm3 (4.5-11.0) L 05/08/21 05:16 RBC 4.11 M/mm3 (3.65-5.03) 05/08/21 05:16 Hgb 12.2 gm/dl (10.1-14.3) 05/08/21 05:16 Hct 38.2 % (30.3-42.9) D 05/08/21 05:16 MCV 93 fl (79-97) 05/08/21 05:16 MCH 30 pg (28-32) 05/08/21 05:16 MCHC 32 % (30-34) 05/08/21 05:16 RDW 13.5 % (13.2-15.2) 05/08/21 05:16 Plt Count 181 K/mm3 (140-440) 05/08/21 05:16 Lymph % (Auto) Logger Driving Horses 05/08/21 05:16 Waldo % (Auto) 5.4 % (0.0-7.3) 05/07/21 03:05 Eos % (Auto) 0.7 % (0.0-4.3) 05/07/21 03:05 Baso % (Auto) 0.8 % (0.0-1.8) 05/07/21 03:05 Lymph # (Auto) 2.6 K/mm3 (1.2-5.4) 05/07/21 03:05 Waldo # (Auto) 0.5 K/mm3 (0.0-0.8) 05/07/21 03:05 Eos # (Auto) 0.1 K/mm3 (0.0-0.4) 05/07/21 03:05 Baso # (Auto) 0.1 K/mm3 (0.0-0.1) 05/07/21 03:05 Add Manual Diff Complete 05/08/21 05:16 Total Counted 100 05/08/21 05:16 Seg Neutrophils % Logger Driving Horses 05/08/21 05:16 Seg Neuts % (Manual) 45.0 % (40.0-70.0) 05/08/21 05:16 Lymphocytes % (Manual) 48.0 % (13.4-35.0) H 05/08/21 05:16 Monocytes % (Manual) 4.0 % (0.0-7.3) 05/08/21 05:16 Myelocytes % 3.0 % 05/08/21 05:16 Nucleated RBC % Not Reportable 05/08/21 05:16 Seg Neutrophils # 5.4 K/mm3 (1.8-7.7) 05/07/21 03:05 Seg Neutrophils # Man 1.9 K/mm3 (1.8-7.7) 05/08/21 05:16 Band Neutrophils # 0.0 K/mm3 05/08/21 05:16 Lymphocytes # (Manual) 2.1 K/mm3 (1.2-5.4) 05/08/21 05:16 Abs React Lymphs (Man) 0.0 K/mm3 05/08/21 05:16 Monocytes # (Manual) 0.2 K/mm3 (0.0-0.8) 05/08/21 05:16 Eosinophils # (Manual) 0.0 K/mm3 (0.0-0.4) 05/08/21 05:16 Basophils # (Manual) 0.0 K/mm3 (0.0-0.1) 05/08/21 05:16 Metamyelocytes # 0.0 K/mm3 05/08/21 05:16 Myelocytes # 0.1 K/mm3 05/08/21 05:16 Promyelocytes # 0.0 K/mm3 05/08/21 05:16 Blast Cells # 0.0 K/mm3 05/08/21 05:16 WBC Morphology Not Reportable 05/08/21 05:16 Hypersegmented Neuts Not Reportable 05/08/21 05:16 Hyposegmented Neuts Not Reportable 05/08/21 05:16 Hypogranular Neuts Not Reportable 05/08/21 05:16 Smudge Cells Not Reportable 05/08/21 05:16 Toxic Granulation Not Reportable 05/08/21 05:16 Toxic Vacuolation Not Reportable 05/08/21 05:16 Dohle Bodies Not Reportable 05/08/21 05:16 Pelger-Huet Anomaly Not Reportable 05/08/21 05:16 Leia Rods Not Reportable 05/08/21 05:16 Platelet Estimate Consistent w auto 05/08/21 05:16 Clumped Platelets Not Reportable 05/08/21 05:16 Plt Clumps, EDTA Not Reportable 05/08/21 05:16 Large Platelets Not Reportable 05/08/21 05:16 Giant Platelets Not Reportable 05/08/21 05:16 Platelet Satelliting Not Reportable 05/08/21 05:16 Plt Morphology Comment Not Reportable 05/08/21 05:16 RBC Morphology Not Reportable 05/08/21 05:16 Dimorphic RBCs Not Reportable 05/08/21 05:16 Polychromasia Not Reportable 05/08/21 05:16 Hypochromasia Not Reportable 05/08/21 05:16 Poikilocytosis Not Reportable 05/08/21 05:16 Anisocytosis Not Reportable 05/08/21 05:16 Microcytosis Not Reportable 05/08/21 05:16 Macrocytosis Not Reportable 05/08/21 05:16 Spherocytes Not Reportable 05/08/21 05:16 Pappenheimer Bodies Not Reportable 05/08/21 05:16 Sickle Cells Not Reportable 05/08/21 05:16 Target Cells Not Reportable 05/08/21 05:16 Tear Drop Cells Not Reportable 05/08/21 05:16 Ovalocytes Not Reportable 05/08/21 05:16 Helmet Cells Not Reportable 05/08/21 05:16 [place] Bodies Not Reportable 05/08/21 05:16 Mercer Rings Not Reportable 05/08/21 05:16 Tim Cells Not Reportable 05/08/21 05:16 Bite Cells Not Reportable 05/08/21 05:16 Crenated Cell Not Reportable 05/08/21 05:16 Elliptocytes Not Reportable 05/08/21 05:16 Acanthocytes (Spur) Not Reportable 05/08/21 05:16 Rouleaux Not Reportable 05/08/21 05:16 Hemoglobin C Crystals Not Reportable 05/08/21 05:16 Schistocytes Not Reportable 05/08/21 05:16 Malaria parasites Not Reportable 05/08/21 05:16 Joe Bodies Not Reportable 05/08/21 05:16 Hem Pathologist Commnt No 05/08/21 05:16 PT 13.5 Sec. (12.2-14.9) 05/07/21 01:53 INR 0.93 (0.87-1.13) 05/07/21 01:53 Sodium 140 mmol/L (137-145) 05/08/21 05:16 Potassium 3.6 mmol/L (3.6-5.0) 05/08/21 05:16 Chloride 108.4 mmol/L (98-107) H 05/08/21 05:16 Carbon Dioxide 21 mmol/L (22-30) L 05/08/21 05:16 Anion Gap 14 mmol/L 05/08/21 05:16 BUN 11 mg/dL (7-17) 05/08/21 05:16 Creatinine 0.9 mg/dL (0.6-1.2) 05/08/21 05:16 Estimated GFR > 60 ml/min 05/08/21 05:16 BUN/Creatinine Ratio 12 % 05/08/21 05:16 Glucose 111 mg/dL (65-100) H 05/08/21 05:16 POC Glucose 130 mg/dL (70-105) H 05/07/21 15:36 Calcium 8.2 mg/dL (8.4-10.2) L 05/08/21 05:16 Phosphorus 3.40 mg/dL (2.5-4.5) 05/08/21 05:16 Magnesium 2.00 mg/dL (1.7-2.3) 05/08/21 05:16 Total Bilirubin 0.30 mg/dL (0.1-1.2) 05/08/21 05:16 Direct Bilirubin 0.2 mg/dL (0-0.2) 05/07/21 01:53 Indirect Bilirubin 0.6 mg/dL 05/07/21 01:53 AST 13 units/L (5-40) 05/08/21 05:16 ALT 28 units/L (7-56) 05/08/21 05:16 Alkaline Phosphatase 82 units/L (35-129) 05/08/21 05:16 Ammonia 52.0 umol/L (25-60) 05/07/21 11:02 Troponin T < 0.010 ng/mL (0.00-0.029) 05/07/21 06:04 Total Protein 5.8 g/dL (6.3-8.2) L D 05/08/21 05:16 Albumin 3.4 g/dL (3.9-5) L 05/08/21 05:16 Albumin/Globulin Ratio 1.4 % 05/08/21 05:16 Lipase 12 units/L (13-60) L 05/07/21 01:53 Vitamin B12 427.2 pg/mL (211-911) 05/07/21 11:02 TSH 0.828 mlU/mL (0.270-4.200) 05/07/21 01:53 Urine Color Yellow (Yellow) 05/07/21 Unknown Urine Turbidity Slightly-cloudy (Clear) 05/07/21 Unknown Urine pH 6.0 (5.0-7.0) 05/07/21 Unknown Ur Specific Dilley 1.017 (1.003-1.030) 05/07/21 Unknown Urine Protein <15 mg/dl mg/dL (Negative) 05/07/21 Unknown Urine Glucose (UA) Neg mg/dL (Negative) 05/07/21 Unknown Urine Ketones 20 mg/dL (Negative) 05/07/21 Unknown Urine Blood Sm (Negative) 05/07/21 Unknown Urine Nitrite Neg (Negative) 05/07/21 Unknown Urine Bilirubin Neg (Negative) 05/07/21 Unknown Urine Urobilinogen 4.0 mg/dL (<2.0) 05/07/21 Unknown Ur Leukocyte Esterase Neg (Negative) 05/07/21 Unknown Urine WBC (Auto) 7.0 /HPF (0.0-6.0) H 05/07/21 Unknown Urine RBC (Auto) 20.0 /HPF (0.0-6.0) 05/07/21 Unknown U Epithel Cells (Auto) 4.0 /HPF (0-13.0) 05/07/21 Unknown Urine Bacteria (Auto) 1+ /HPF (Negative) 05/07/21 Unknown Urine Mucus Few /HPF 05/07/21 Unknown Urine Yeast (Budding) 1+ /HPF 05/07/21 Unknown Salicylates < 0.3 mg/dL (2.8-20.0) L 05/07/21 01:53 Urine Opiates Screen Presumptive negative 05/07/21 Unknown Urine Methadone Screen Presumptive negative 05/07/21 Unknown Acetaminophen 5.0 ug/mL (10.0-30.0) L 05/07/21 01:53 Ur Barbiturates Screen Presumptive negative 05/07/21 Unknown Ur Phencyclidine Scrn Presumptive negative 05/07/21 Unknown Ur Amphetamines Screen Presumptive negative 05/07/21 Unknown U Benzodiazepines Scrn Presumptive negative 05/07/21 Unknown Urine Cocaine Screen Presumptive positive 05/07/21 Unknown U Marijuana (THC) Screen Presumptive negative 05/07/21 Unknown Drugs of Abuse Note Disclamer 05/07/21 Unknown Plasma/Serum Alcohol < 0.01 % (0-0.07) 05/07/21 01:53 Blood Type O POSITIVE 05/07/21 01:53 Antibody Screen Negative 05/07/21 01:53 Microbiology: Microbiology 05/07/21 06:04 Peripheral/Venous Blood Culture - Preliminary NO GROWTH AFTER 24 HOURS 05/07/21 05:57 Peripheral/Venous Blood Culture - Preliminary NO GROWTH AFTER 24 HOURS Younger/IV: Voiding Method Toilet Active Medications - Current Medications Current Medications: Generic Name Dose Route Start Last Admin Trade Name Freq PRN Reason Stop Dose Admin Acetaminophen 650 mg 05/07/21 06:12 Acetaminophen 325 Mg Tab PO Q4H PRN Pain MILD(1-3)/Fever >100.5/HURT Albuterol 2.5 mg 05/07/21 06:12 Albuterol 2.5 Mg/3 Ml Nebu IH Q4HRT PRN Shortness Of Breath Albuterol/Ipratropium 1 ampul 05/07/21 08:00 05/08/21 09:35 Ipratropium/Albuterol Sulfate 3 Ml Ampul.Neb IH 1 ampul Q6HRT LUZMARIA Administration Calcium Carbonate/Glycine 1,250 mg 05/08/21 10:00 05/08/21 12:04 Calcium Carbonate 1250 Mg Tab PO 1,250 mg QDAY LUZMARIA Administration Famotidine 20 mg 05/07/21 10:00 05/08/21 12:05 Famotidine 20 Mg/2 Ml Inj IV 20 mg BID LUZMARIA Administration Heparin Sodium (Porcine) 5,000 unit 05/07/21 14:00 05/08/21 13:02 Heparin 5,000 Unit/1 Ml Vial SUB-Q 5,000 unit Q8HR LUZMARIA Administration Hydromorphone HCl 0.5 mg 05/07/21 06:12 Hydromorphone 1 Mg/1 Ml Inj IV Q3H PRN Pain , Severe (7-10) Dextrose/Sodium Chloride 1,000 mls @ 100 mls/hr 05/07/21 07:00 05/07/21 12:33 D5/0.45ns IV 100 mls/hr DIRECT LUZMARIA Administration Ceftriaxone Sodium 2 gm in 100 mls @ 200 mls/hr 05/07/21 07:00 05/08/21 12:03 Rocephin/Ns 2 Gm/100 Ml IV 200 mls/hr Q24HR LUZMARIA Administration Protocol Morphine Sulfate 2 mg 05/07/21 06:12 05/08/21 00:31 Morphine 2 Mg/1 Ml Inj IV 2 mg Q4H PRN Administration Pain, Moderate (4-6) Ondansetron HCl 4 mg 05/07/21 06:12 05/08/21 00:31 Ondansetron 4 Mg/2 Ml Inj IV 4 mg Q8H PRN Administration Nausea And Vomiting Sodium Chloride 10 ml 05/07/21 10:00 05/08/21 12:06 Sodium Chloride 0.9% 10 Ml Flush Syringe IV 10 ml BID LUZMARIA Administration Sodium Chloride 10 ml 05/07/21 06:12 Sodium Chloride 0.9% 10 Ml Flush Syringe IV PRN PRN LINE FLUSH
[2021-05-09] MEDS: IPRATROPIUM/ALBUTEROL SULFATE 3 ML AMPUL.NEB IH SCH ×4 (01:50→19:46)
[2021-05-09] MEDS: HEPARIN 5,000 UNIT/1 ML VIAL SUB-Q SCH ×3 (06:33→21:37)
[2021-05-09 06:48] LABS: Hemoglobin 11.7 gm/dl (10.1-14.3); Mean Corpuscular HGB Conc 32 % (30-34); Mean Corpuscular Volume 93 fl (79-97); Platelet Count 175 K/mm3 (140-440); Red Blood Count 3.97 M/mm3 (3.65-5.03); Red Cell Distribution Width 13.5 % (13.2-15.2)
[2021-05-09 07:13] LABS: Blood Urea Nitrogen 8 mg/dL (7-17); Calcium 8.1 mg/dL (8.4-10.2); Hemolysis Index 5
[2021-05-09 07:16] LABS: BUN/Creatinine Ratio 11
[2021-05-09] MEDS: CALCIUM CARBONATE 1250 MG TAB PO SCH (10:17)
[2021-05-09] MEDS: FAMOTIDINE 20 MG/2 ML INJ IV SCH ×2 (10:18→21:38)
[2021-05-09] MEDS: cefTRIAXone/NS 2 GM/100 ML 2 GM/100 ML BAG IV SCH (10:18)
[2021-05-09 11:11] LABS: Total Cells Counted 100
[2021-05-09 11:12] LABS: Platelet Estimate Consistent w Auto
--- NOTE | 2021-05-09 13:15 | Progress Note ---
Assessment and Plan Assessment and plan: Patient is a 61-year-old female past medical history of hypertension, polysubstance abuse, and homelessness who was found unresponsive on the ground outside, and EMS was called. Patient was admitted for management of acute metabolic encephalopathy. #Acute metabolic encephalopathy-resolved Had initial suspicion for UTI which has been ruled out. UA is negative, she received 2 doses of IV Rocephin prior to discontinuation. Blood cultures negative. #Acute toxic encephalopathy-resolved #Bradycardia-resolved. Continue to hold beta-jaziel. Cardiology input appreciated #Hypoglycemia-resolved Continue current diet. Monitor blood glucose #Hypertension Uncontrolled. Start Norvasc 10 mg p.o. daily. #Homelessness #Polysubstance abuse -UDS positive for cocaine. Patient endorses utilizing crack within the last 4-5 days. Patient admits to having a substance abuse disorder. -Patient currently homeless as a result of substance abuse. Patient amendable to being discharged to a [facility]. Case management made aware and working on discharge planning. #Advanced care planning -Disease education conducted, care plan discussed, diagnoses discussed, prognosis discussed, and patient acknowledges understanding with care plan #Discharge planning For discharge tomorrow if blood pressure is controlled. History Interval history: Reported her blood pressure is high. No pain, fever, or chills. Hospitalist Physical - Constitutional Vitals: Temp Pulse Resp BP Pulse Ox 97.7 F 66 16 173/86 98 05/09/21 10:43 05/09/21 10:43 05/09/21 10:43 05/09/21 10:43 05/09/21 10:43 General appearance: Present: no acute distress, well-nourished - EENT Eyes: Present: PERRL, EOM intact ENT: hearing intact, clear oral mucosa - Neck Neck: Present: supple - Respiratory Respiratory effort: normal - Cardiovascular Rhythm: regular Heart Sounds: Present: S1 & S2 - Extremities Extremities: no ischemia, No edema, Full ROM - Abdominal General gastrointestinal: soft, non-tender, non-distended, normal bowel sounds - Integumentary Integumentary: Present: warm, dry - Psychiatric Psychiatric: appropriate mood/affect - Neurologic Neurologic: moves all extremities HEART Score - HEART Score Troponin: Troponin T < 0.010 ng/mL (0.00-0.029) 05/07/21 06:04 Results - Labs CBC & Chem 7: 05/09/21 05:34 05/09/21 05:34 Labs: Laboratory Last Values WBC 5.1 K/mm3 (4.5-11.0) 05/09/21 05:34 RBC 3.97 M/mm3 (3.65-5.03) 05/09/21 05:34 Hgb 11.7 gm/dl (10.1-14.3) 05/09/21 05:34 Hct 37.0 % (30.3-42.9) 05/09/21 05:34 MCV 93 fl (79-97) 05/09/21 05:34 MCH 30 pg (28-32) 05/09/21 05:34 MCHC 32 % (30-34) 05/09/21 05:34 RDW 13.5 % (13.2-15.2) 05/09/21 05:34 Plt Count 175 K/mm3 (140-440) 05/09/21 05:34 Lymph % (Auto) On Site Soil Evaluator 05/08/21 05:16 Allen % (Auto) 5.4 % (0.0-7.3) 05/07/21 03:05 Eos % (Auto) 0.7 % (0.0-4.3) 05/07/21 03:05 Baso % (Auto) 0.8 % (0.0-1.8) 05/07/21 03:05 Lymph # (Auto) 2.6 K/mm3 (1.2-5.4) 05/07/21 03:05 Allen # (Auto) 0.5 K/mm3 (0.0-0.8) 05/07/21 03:05 Eos # (Auto) 0.1 K/mm3 (0.0-0.4) 05/07/21 03:05 Baso # (Auto) 0.1 K/mm3 (0.0-0.1) 05/07/21 03:05 Add Manual Diff Complete 05/09/21 05:34 Total Counted 100 05/09/21 05:34 Seg Neutrophils % On Site Soil Evaluator 05/09/21 05:34 Seg Neuts % (Manual) 34.0 % (40.0-70.0) L 05/09/21 05:34 Lymphocytes % (Manual) 51.0 % (13.4-35.0) H 05/09/21 05:34 Reactive Lymphs % (Man) 3.0 % 05/09/21 05:34 Monocytes % (Manual) 11.0 % (0.0-7.3) H 05/09/21 05:34 Metamyelocytes % 1.0 % 05/09/21 05:34 Myelocytes % 3.0 % 05/08/21 05:16 Nucleated RBC % Not Reportable 05/09/21 05:34 Seg Neutrophils # 5.4 K/mm3 (1.8-7.7) 05/07/21 03:05 Seg Neutrophils # Man 1.7 K/mm3 (1.8-7.7) L 05/09/21 05:34 Band Neutrophils # 0.0 K/mm3 05/09/21 05:34 Lymphocytes # (Manual) 2.6 K/mm3 (1.2-5.4) 05/09/21 05:34 Abs React Lymphs (Man) 0.2 K/mm3 05/09/21 05:34 Monocytes # (Manual) 0.6 K/mm3 (0.0-0.8) 05/09/21 05:34 Eosinophils # (Manual) 0.0 K/mm3 (0.0-0.4) 05/09/21 05:34 Basophils # (Manual) 0.0 K/mm3 (0.0-0.1) 05/09/21 05:34 Metamyelocytes # 0.1 K/mm3 05/09/21 05:34 Myelocytes # 0.0 K/mm3 05/09/21 05:34 Promyelocytes # 0.0 K/mm3 05/09/21 05:34 Blast Cells # 0.0 K/mm3 05/09/21 05:34 WBC Morphology Not Reportable 05/09/21 05:34 Hypersegmented Neuts Not Reportable 05/09/21 05:34 Hyposegmented Neuts Not Reportable 05/09/21 05:34 Hypogranular Neuts Not Reportable 05/09/21 05:34 Smudge Cells Not Reportable 05/09/21 05:34 Toxic Granulation Not Reportable 05/09/21 05:34 Toxic Vacuolation Not Reportable 05/09/21 05:34 Dohle Bodies Not Reportable 05/09/21 05:34 Pelger-Huet Anomaly Not Reportable 05/09/21 05:34 Leia Rods Not Reportable 05/09/21 05:34 Platelet Estimate Consistent w auto 05/09/21 05:34 Clumped Platelets Not Reportable 05/09/21 05:34 Plt Clumps, EDTA Not Reportable 05/09/21 05:34 Large Platelets Not Reportable 05/09/21 05:34 Giant Platelets Not Reportable 05/09/21 05:34 Platelet Satelliting Not Reportable 05/09/21 05:34 Plt Morphology Comment Not Reportable 05/09/21 05:34 RBC Morphology Not Reportable 05/09/21 05:34 Dimorphic RBCs Not Reportable 05/09/21 05:34 Polychromasia Not Reportable 05/09/21 05:34 Hypochromasia Not Reportable 05/09/21 05:34 Poikilocytosis Not Reportable 05/09/21 05:34 Anisocytosis Not Reportable 05/09/21 05:34 Microcytosis Not Reportable 05/09/21 05:34 Macrocytosis Not Reportable 05/09/21 05:34 Spherocytes Not Reportable 05/09/21 05:34 Pappenheimer Bodies Not Reportable 05/09/21 05:34 Sickle Cells Not Reportable 05/09/21 05:34 Target Cells Not Reportable 05/09/21 05:34 Tear Drop Cells Not Reportable 05/09/21 05:34 Ovalocytes Not Reportable 05/09/21 05:34 Helmet Cells Not Reportable 05/09/21 05:34 [place] Bodies Not Reportable 05/09/21 05:34 [place] Rings Not Reportable 05/09/21 05:34 [place] Cells Not Reportable 05/09/21 05:34 Bite Cells Not Reportable 05/09/21 05:34 Crenated Cell Not Reportable 05/09/21 05:34 Elliptocytes 1+ 05/09/21 05:34 Acanthocytes (Spur) Not Reportable 05/09/21 05:34 Rouleaux Not Reportable 05/09/21 05:34 Hemoglobin C Crystals Not Reportable 05/09/21 05:34 Schistocytes Not Reportable 05/09/21 05:34 Malaria parasites Not Reportable 05/09/21 05:34 Joe Bodies Not Reportable 05/09/21 05:34 Hem Pathologist Commnt No 05/09/21 05:34 PT 13.5 Sec. (12.2-14.9) 05/07/21 01:53 INR 0.93 (0.87-1.13) 05/07/21 01:53 Sodium 142 mmol/L (137-145) 05/09/21 05:34 Potassium 3.7 mmol/L (3.6-5.0) 05/09/21 05:34 Chloride 109.3 mmol/L (98-107) H 05/09/21 05:34 Carbon Dioxide 21 mmol/L (22-30) L 05/09/21 05:34 Anion Gap 15 mmol/L 05/09/21 05:34 BUN 8 mg/dL (7-17) 05/09/21 05:34 Creatinine 0.7 mg/dL (0.6-1.2) 05/09/21 05:34 Estimated GFR > 60 ml/min 05/09/21 05:34 BUN/Creatinine Ratio 11 % 05/09/21 05:34 Glucose 93 mg/dL (65-100) 05/09/21 05:34 POC Glucose 130 mg/dL (70-105) H 05/07/21 15:36 Calcium 8.1 mg/dL (8.4-10.2) L 05/09/21 05:34 Phosphorus 3.40 mg/dL (2.5-4.5) 05/08/21 05:16 Magnesium 2.00 mg/dL (1.7-2.3) 05/08/21 05:16 Total Bilirubin 0.30 mg/dL (0.1-1.2) 05/08/21 05:16 Direct Bilirubin 0.2 mg/dL (0-0.2) 05/07/21 01:53 Indirect Bilirubin 0.6 mg/dL 05/07/21 01:53 AST 13 units/L (5-40) 05/08/21 05:16 ALT 28 units/L (7-56) 05/08/21 05:16 Alkaline Phosphatase 82 units/L (35-129) 05/08/21 05:16 Ammonia 52.0 umol/L (25-60) 05/07/21 11:02 Troponin T < 0.010 ng/mL (0.00-0.029) 05/07/21 06:04 Total Protein 5.8 g/dL (6.3-8.2) L D 05/08/21 05:16 Albumin 3.4 g/dL (3.9-5) L 05/08/21 05:16 Albumin/Globulin Ratio 1.4 % 05/08/21 05:16 Lipase 12 units/L (13-60) L 05/07/21 01:53 Vitamin B12 427.2 pg/mL (211-911) 05/07/21 11:02 TSH 0.828 mlU/mL (0.270-4.200) 05/07/21 01:53 Urine Color Yellow (Yellow) 05/07/21 Unknown Urine Turbidity Slightly-cloudy (Clear) 05/07/21 Unknown Urine pH 6.0 (5.0-7.0) 05/07/21 Unknown Ur Specific [place] 1.017 (1.003-1.030) 05/07/21 Unknown Urine Protein <15 mg/dl mg/dL (Negative) 05/07/21 Unknown Urine Glucose (UA) Neg mg/dL (Negative) 05/07/21 Unknown Urine Ketones 20 mg/dL (Negative) 05/07/21 Unknown Urine Blood Sm (Negative) 05/07/21 Unknown Urine Nitrite Neg (Negative) 05/07/21 Unknown Urine Bilirubin Neg (Negative) 05/07/21 Unknown Urine Urobilinogen 4.0 mg/dL (<2.0) 05/07/21 Unknown Ur Leukocyte Esterase Neg (Negative) 05/07/21 Unknown Urine WBC (Auto) 7.0 /HPF (0.0-6.0) H 05/07/21 Unknown Urine RBC (Auto) 20.0 /HPF (0.0-6.0) 05/07/21 Unknown U Epithel Cells (Auto) 4.0 /HPF (0-13.0) 05/07/21 Unknown Urine Bacteria (Auto) 1+ /HPF (Negative) 05/07/21 Unknown Urine Mucus Few /HPF 05/07/21 Unknown Urine Yeast (Budding) 1+ /HPF 05/07/21 Unknown Salicylates < 0.3 mg/dL (2.8-20.0) L 05/07/21 01:53 Urine Opiates Screen Presumptive negative 05/07/21 Unknown Urine Methadone Screen Presumptive negative 05/07/21 Unknown Acetaminophen 5.0 ug/mL (10.0-30.0) L 05/07/21 01:53 Ur Barbiturates Screen Presumptive negative 05/07/21 Unknown Ur Phencyclidine Scrn Presumptive negative 05/07/21 Unknown Ur Amphetamines Screen Presumptive negative 05/07/21 Unknown U Benzodiazepines Scrn Presumptive negative 05/07/21 Unknown Urine Cocaine Screen Presumptive positive 05/07/21 Unknown U Marijuana (THC) Screen Presumptive negative 05/07/21 Unknown Drugs of Abuse Note Disclamer 05/07/21 Unknown Plasma/Serum Alcohol < 0.01 % (0-0.07) 05/07/21 01:53 Blood Type O POSITIVE 05/07/21 01:53 Antibody Screen Negative 05/07/21 01:53 Microbiology: Microbiology 05/07/21 06:04 Peripheral/Venous Blood Culture - Preliminary NO GROWTH AFTER 48 HOURS 05/07/21 05:57 Peripheral/Venous Blood Culture - Preliminary NO GROWTH AFTER 48 HOURS Younger/IV: Voiding Method External Female Catheter Active Medications - Current Medications Current Medications: Generic Name Dose Route Start Last Admin Trade Name Freq PRN Reason Stop Dose Admin Acetaminophen 650 mg 05/07/21 06:12 Acetaminophen 325 Mg Tab PO Q4H PRN Pain MILD(1-3)/Fever >100.5/HURT Albuterol 2.5 mg 05/07/21 06:12 Albuterol 2.5 Mg/3 Ml Nebu IH Q4HRT PRN Shortness Of Breath Albuterol/Ipratropium 1 ampul 05/07/21 08:00 05/09/21 09:15 Ipratropium/Albuterol Sulfate 3 Ml Ampul.Neb IH 1 ampul Q6HRT LUZMARIA Administration Amlodipine Besylate 10 mg 05/09/21 12:00 Amlodipine 10 Mg Tab PO QDAY LUZMARIA Calcium Carbonate/Glycine 1,250 mg 05/08/21 10:00 05/09/21 10:17 Calcium Carbonate 1250 Mg Tab PO 1,250 mg QDAY LUZMARIA Administration Famotidine 20 mg 05/07/21 10:00 05/09/21 10:18 Famotidine 20 Mg/2 Ml Inj IV Not Given BID LUZMARIA Heparin Sodium (Porcine) 5,000 unit 05/07/21 14:00 05/09/21 06:33 Heparin 5,000 Unit/1 Ml Vial SUB-Q 5,000 unit Q8HR LUZMARIA Administration Hydromorphone HCl 0.5 mg 05/07/21 06:12 Hydromorphone 1 Mg/1 Ml Inj IV Q3H PRN Pain , Severe (7-10) Ceftriaxone Sodium 2 gm in 100 mls @ 200 mls/hr 05/07/21 07:00 05/09/21 10:18 Rocephin/Ns 2 Gm/100 Ml IV Not Given Q24HR [facility] Protocol Morphine Sulfate 2 mg 05/07/21 06:12 05/08/21 00:31 Morphine 2 Mg/1 Ml Inj IV 2 mg Q4H PRN Administration Pain, Moderate (4-6) Ondansetron HCl 4 mg 05/07/21 06:12 05/08/21 00:31 Ondansetron 4 Mg/2 Ml Inj IV 4 mg Q8H PRN Administration Nausea And Vomiting Sodium Chloride 10 ml 05/07/21 10:00 05/09/21 10:18 Sodium Chloride 0.9% 10 Ml Flush Syringe IV Not Given BID LUZMARIA Sodium Chloride 10 ml 05/07/21 06:12 Sodium Chloride 0.9% 10 Ml Flush Syringe IV PRN PRN LINE FLUSH
[2021-05-09] MEDS: amLODIPine 10 MG TAB PO SCH (14:16)
[2021-05-10] MEDS: IPRATROPIUM/ALBUTEROL SULFATE 3 ML AMPUL.NEB IH SCH ×3 (03:22→14:14)
[2021-05-10] MEDS: HEPARIN 5,000 UNIT/1 ML VIAL SUB-Q SCH (05:29)
[2021-05-10 08:26] VITALS: BP 155/78
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
[2021-05-10] MEDS: amLODIPine 10 MG TAB PO SCH (10:19)
[2021-05-10] MEDS: FAMOTIDINE 20 MG/2 ML INJ IV SCH (10:19)
[2021-05-10] MEDS: CALCIUM CARBONATE 1250 MG TAB PO SCH (10:19)
== END 2021-05-10 14:30 | disposition home or self-care (01) ==
LOC: ED 23:16 → 4A 05-07 06:12
PROVIDERS: ADMIT Hospitalist; ATTEND Student in an Organized Health Care Education/Training Program
DX: G93.41 Metabolic encephalopathy (principal); I10 Essential (primary) hypertension; N39.0 Urinary tract infection, site not specified; R00.1 Bradycardia, unspecified; R41.82 Altered mental status, unspecified; E16.2 Hypoglycemia, unspecified; F14.90 Cocaine use, unspecified, uncomplicated; Z79.899 Other long term (current) drug therapy; Z98.890 Other specified postprocedural states; Z59.00 Homelessness unspecified
CPT/HCPCS: 36415; 70450; 71045; 80048; 80053; 80076; 80307; 81001; 82140; 82607; 82747; 82962; 83690; 83735; 84100; 84443; 84484; 85025; 85610; 86850; 86900; 86901; 87040; 93005; 93306; 94640; 96361; 96365; 96366; 96372; 96375; 96376; 99291; G0378; J0696; J1644; J2270; J2405; J3490; J7040; J7070; 80320; 85007; G0480